=== PATIENT | female | born 1970 | race Caucasian/White ===

== ENCOUNTER 2018-12-06 11:25 | Emergency (ER) | payer OTHER ==
--- NOTE | 2018-12-06 11:47 | EDPHY ---
H & P Stated Complaint: L neck/L shoulder pain Time Seen by Provider: 12/06/18 11:36 HPI/ROS: CHIEF COMPLAINT: Left-sided anterior neck pain, dizziness HISTORY OF PRESENT ILLNESS: The patient presents to the ED with symptoms including nausea, left shoulder pain and left anterior neck pain. The patient' s symptoms began today at the grocery store. They did precipitate some anxiety as she was concerned about the possibility of a heart attack. The patient reports she exercises frequently without symptoms of chest pain or shortness of breath. Her symptoms have essentially abated in the ED aside from some ongoing anterior discomfort in the left side of her neck. The patient does report she sees a chiropractor frequently. She did have cervical manipulation performed 2 days ago and reportedly did have her aggressive "neck cracking." REVIEW OF SYSTEMS: A comprehensive 10 point review of systems is otherwise negative aside from elements mentioned in the history of present illness. Source: Patient Exam Limitations: No limitations - Personal History Current Tetanus/Diphtheria Vaccine: Yes Current Tetanus Diphtheria and Acellular Pertussis (TDAP): Yes - Medical/Surgical History Hx Asthma: No Hx Chronic Respiratory Disease: No Hx Diabetes: No Hx Cardiac Disease: No Hx Renal Disease: No Hx Cirrhosis: No Hx Alcoholism: No Hx HIV/AIDS: No Hx Splenectomy or Spleen Trauma: No Other PMH: tonsilectomy - Social History Smoking Status: Never smoked - Physical Exam Exam: General Appearance: Alert, no distress Eyes: Pupils equal and round no pallor or injection Neck: Tenderness to palpation along the left anterior sternocleidomastoid muscle and in the deeper tissues, no obvious carotid bruit ENT, Mouth: Mucous membranes moist Respiratory: There are no retractions, lungs are clear to auscultation Cardiovascular: Regular rate and rhythm Gastrointestinal: Abdomen is soft and nontender, no masses, bowel sounds normal Neurological: A&O, normal motor function, normal sensory exam, normal cranial nerves Skin: Warm and dry, no rashes Musculoskeletal: Neck is supple nontender Psychiatric: Patient is oriented X 3, there is no agitation Constitutional: Initial Vital Signs Temperature (C) 36.8 C 12/06/18 11:28 Heart Rate 68 12/06/18 11:28 Respiratory Rate 16 12/06/18 11:28 Blood Pressure 185/93 H 12/06/18 11:28 O2 Sat (%) 98 12/06/18 11:28 O2 Delivery Mode Room Air Allergies/Adverse Reactions: No Known Allergies Allergy (Unverified 12/06/18 11:28) Home Medications: Medication Instructions Recorded NK [No Known Home Meds] 12/06/18 Medical Decision Making - Diagnostics EKG Interpretation: EKG: Complete interpretation has been separately recorded in the [facility] archive. Summary impression: Sinus rhythm, rate 59 Imaging Results: Imaging Impressions Chest X-Ray 12/06/18 11:32 Impression: Clear lungs. No acute process. CT angiogram of the neck: Images reviewed with Dr. Brenner. Impression: Negative for carotid artery dissection or other cervical abnormality. ED Course/Re-evaluation: The patient presents to the ED after a vasovagal type episode precipitated by nausea with additional symptoms of left shoulder discomfort and left neck pain. The patient's only symptom currently is some left-sided neck discomfort. She has no risk factors for coronary artery disease. Her EKG and troponin are normal. Given the patient's history of recent chiropractic manipulation we did discuss the possibility of carotid artery dissection. The patient has consented to undergo a CT angiogram of the neck for evaluation of this condition. The patient received IV fluids in the emergency department. She had serial examinations over [address] angiogram of the neck demonstrates no evidence of a dissection. At this point time I have a low suspicion for acute coronary syndrome and favor vasovagal episode. The patient will be discharged home with customary aftercare instructions and return precautions. Differential Diagnosis: Differential diagnosis considered includes dehydration, metabolic abnormality, carotid artery dissection, arrhythmia, acute coronary syndrome, myocardial infarction - Data Points Laboratory Results: Laboratory Results 12/06/18 11:40 12/06/18 11:40 12/06/18 12/06/18 12/06/18 11:49 11:40 11:40 WBC 5.80 10^3/uL 10^3/uL (3.80-9.50) RBC 4.98 10^6/uL 10^6/uL (4.18-5.33) Hgb 14.9 g/dL g/dL (12.6-16.3) Hct 43.5 % % (38.0-47.0) MCV 87.3 fL fL (81.5-99.8) MCH 29.9 pg pg (27.9-34.1) MCHC 34.3 g/dL g/dL (32.4-36.7) RDW 12.8 % % (11.5-15.2) Plt Count 221 10^3/uL 10^3/uL (150-400) MPV 9.2 fL fL (8.7-11.7) Neut % (Auto) 53.8 % % (39.3-74.2) Lymph % (Auto) 32.9 % % (15.0-45.0) [place] % (Auto) 11.4 % % (4.5-13.0) Eos % (Auto) 1.4 % % (0.6-7.6) Baso % (Auto) 0.5 % % (0.3-1.7) Nucleat RBC Rel Count 0.0 % % (0.0-0.2) Absolute Neuts (auto) 3.12 10^3/uL 10^3/uL (1.70-6.50) Absolute Lymphs (auto) 1.91 10^3/uL 10^3/uL (1.00-3.00) Absolute Monos (auto) 0.66 10^3/uL 10^3/uL (0.30-0.80) Absolute Eos (auto) 0.08 10^3/uL 10^3/uL (0.03-0.40) Absolute Basos (auto) 0.03 10^3/uL 10^3/uL (0.02-0.10) Absolute Nucleated RBC 0.00 10^3/uL 10^3/uL (0-0.01) Immature Gran % 0.0 % % (0.0-1.1) Immature Gran # 0.00 10^3/uL 10^3/uL (0.00-0.10) Sodium 142 mEq/L mEq/L (135-145) Potassium 4.0 mEq/L mEq/L (3.5-5.2) Chloride 108 mEq/L mEq/L (97-110) Carbon Dioxide 24 mEq/l mEq/l (22-31) Anion Gap 10 mEq/L mEq/L (6-14) BUN 15 mg/dL mg/dL (7-23) Creatinine 0.9 mg/dL mg/dL (0.6-1.0) Estimated GFR > 60 Glucose 92 mg/dL mg/dL (70-100) Calcium 9.9 mg/dL mg/dL (8.5-10.4) POC Troponin I 0.00 ng/mL ng/mL (0.00-0.08) Point of Care Test Results: Chemistry 12/06/18 11:49 POC Troponin I 0.00 ng/mL ng/mL (0.00-0.08) Departure - Departure Disposition: Home, Routine, Self-Care Clinical Impression: Vasovagal episode, Nausea Condition: Good Instructions: Chest Pain (ED) Additional Instructions: 1. Return to the emergency department for any chest pain, shortness of breath, worsening pain, numbness, weakness or other concerns. 2. Please follow-up with your primary care provider as needed. 3. Your EKG and laboratory testing in the emergency department today demonstrates no obvious abnormality. Referrals: NONE *PRIMARY CARE P,. [Primary Care Provider] - As per Instructions
[2018-12-06 11:53] LABS: PLATELET COUNT 221 10^3/uL (150-400)
[2018-12-06] MEDS ORDERED: IOHEXOL 350mgI/ML (OMNIPAQUE) 150 ML BTL IV ONE ×2 (12:31→14:10)
--- NOTE | 2018-12-06 13:34 | CPEKG ---
Test Reason : OPEN Blood Pressure : / mmHG Vent. Rate : 059 BPM Atrial Rate : 060 BPM P-R Int : 124 ms QRS Dur : 080 ms QT Int : 423 ms P-R-T Axes : 016 075 058 degrees QTc Int : 419 ms Sinus rhythm Confirmed by Real Andrade ([id number]) on 12/06/2018 1:33:22 PM Referred By: Real Andrade Confirmed By:Real Andrade
[2018-12-06 14:49] VITALS: BP 122/77
== END 2018-12-06 14:51 | disposition home or self-care (01) ==
DX: R55 Syncope and collapse (principal); R11.0 Nausea; M54.2 Cervicalgia
CPT/HCPCS: 84484-ER; Q9967